=== PATIENT | male | born 1970 | race Caucasian/White ===

== ENCOUNTER 2016-11-19 09:31 | Emergency (ER) | payer OTHER ==
[2016-11-19] MEDS ORDERED: ACETAMINOPHEN 325 MG TABLET ONE (10:54)
[2016-11-19] MEDS ORDERED: DEXAMETHASONE 4 MG TABLET ONE (10:54)
[2016-11-19] MEDS ORDERED: IBUPROFEN 600 MG TABLET ONE (10:54)
== END 2016-11-19 11:19 | disposition home or self-care (01) ==
LOC: ED 09:31
DX: J02.9 Acute pharyngitis, unspecified (principal); J45.909 Unspecified asthma, uncomplicated; F17.220 Nicotine dependence, chewing tobacco, uncomplicated
CPT/HCPCS: 87880; 99283 ×2; A9270 ×3